=== PATIENT | male | born 1990 | race Caucasian/White ===

== ENCOUNTER 2019-05-31 15:41 | Emergency (ER) | payer OTHER ==
[~2019-05-31] VITALS: Ht 175.3 cm; Wt 71.0 kg
[2019-05-31 16:00] VITALS: BP 159/95
== END 2019-05-31 17:11 | disposition home or self-care (01) ==
LOC: ER 15:42
DX: M43.6 Torticollis (principal); F07.81 Postconcussional syndrome; V49.9XXA Car occupant (driver) (passenger) injured in unspecified traffic accident, initial encounter; Y93.89 Activity, other specified; Y92.488 Other paved roadways as the place of occurrence of the external cause; Y99.8 Other external cause status
CPT/HCPCS: 99281